=== PATIENT | male | born 1975 | race Caucasian/White ===

== ENCOUNTER 2018-05-26 18:20 | Emergency (ER) | payer SELFPAY ==
--- NOTE | 2018-05-26 20:24 | C.PDOC ---
History Of Present Illness 43 year old male with a Hx of ETOH use presents complaining of ongoing pain to the back of the head after he fell 2 days ago and hit his head. Denies LOC, nausea, vomiting, vision changes, or ETOH use today. - HPI Time Seen by Provider: 05/26/18 18:53 Chief Complaint (Nursing): Trauma History Per: Patient History/Exam Limitations: no limitations Onset/Duration Of Symptoms: Days Injury Occurred (Timing): Days Ago: (2) Location Of Injury: Posterior: Head Recent travel outside of the [facility]: No - Fall Fall:Prior To Injury: Slipped Past Medical History Reviewed: Historical Data, Nursing Documentation, Vital Signs Vital Signs: Last Vital Signs Temp 97.3 F L 05/26/18 18:28 Pulse 82 05/26/18 18:28 Resp 15 05/26/18 18:28 BP 187/120 H 05/26/18 18:28 Pulse Ox 97 05/26/18 18:28 - Medical History PMH: HTN Surgical History: Cholecystectomy Family History: States: Unknown Family Hx - Social History Hx Alcohol Use: No Hx Substance Use: No - Immunization History Hx Tetanus Toxoid Vaccination: No Hx Influenza Vaccination: No Hx Pneumococcal Vaccination: No Review Of Systems Except As Marked, All Systems Reviewed And Found Negative. Eyes: Negative for: Vision Change Gastrointestinal: Negative for: Nausea, Vomiting Neurological: Positive for: Headache. Negative for: Other (LOC) Physical Exam - Physical Exam Appears: Non-toxic Skin: Warm, Dry Head: Normacephalic, No Laceration, Other (Small hematoma to posterior scalp) Eye(s): bilateral: Normal Inspection, PERRL, EOMI Ear(s): Bilateral: Normal Nose: Normal Neck: Normal, Trachea Midline, No Midline Cervical Tenderness, No Paracervical T enderness, No Step Off Deformity, Supple Chest: Symmetrical, No Tenderness Cardiovascular: Rhythm Regular Respiratory: Normal Breath Sounds, No Rales, No Rhonchi, No Wheezing Gastrointestinal/Abdominal: Soft, No Tenderness Back: No Vertebral Tenderness, No Paraspinal Tenderness Extremity: Normal ROM (x4) Neurological/Psych: Oriented x3, Normal Speech, Normal Motor, Normal Sensation Gait: Steady ED Course And Treatment O2 Sat by Pulse Oximetry: 97 (Room air) Pulse Ox Interpretation: Normal - CT Scan/US CT Neck Other Rad Studies (CT/US): Read By Radiologist, Radiology Report Reviewed CT/US Interpretation: EXAM: CT Head without Intravenous Contrast. CLINICAL HISTORY: DIZZINESS. S/P FALL. H/O SUBSTANCE ABUSE. TECHNIQUE: Axial computed tomography images of the head/brain without intravenous contrast. 0.00 mGy-cm. COMPARISON: None provided. FINDINGS: BRAIN. No acute intraparenchymal hemorrhage. No mass lesion. No CT evidence for acute territorial infarct. No midline shift or extra-axial collections. VENTRICLES: No hydrocephalus. O RBITS: The orbits are unremarkable. SINUSES AND MASTOIDS: The paranasal sinuses and mastoid air cells are clear. BONES: No fracture. SOFT TISSUES: A subtle scalp laceration injury/hematoma is seen in the right posterior superior parietal region. IMPRESSION: 1. No acute intracranial abnormality. 2. Small laceration/hematoma in the right posterior superior parietal scalp. Medical Decision Making Medical Decision Making: Diagnosis: Minor head injury Advised patient to decreased ETOH intake and follow up at the clinic in 2 days. Disposition Counseled Patient/Family Regarding: Diagnosis, Need For Followup - Disposition Referrals: [facility] [Outside] Disposition: HOME/ ROUTINE Disposition Time: 20:31 Condition: STABLE Additional Instructions: follow up with your doctor within 2 days call to make an appointment return to ER if symptoms worsens or progress decrease your alcohol use. Instructions: Minor Head Injury (DC) Forms: Gen Discharge Inst Syrian, [employer] (Syrian) Print Language: LIBERIAN - Clinical Impression Clinical Impression: Minor head injury - Scribe Statement The provider has reviewed the documentation as recorded by the Scribmin Mendes All medical record entries made by the Scribe were at my direction and personally dictated by me. I have reviewed the chart and agree that the record accurately reflects my personal performance of the history, physical exam, medical decision making, and the department course for this patient. I have also personally directed, reviewed, and agree with the discharge instructions and disposition.
[2018-05-26 20:47] VITALS: RESP 16; TEMP 98.8; O2SAT 96
[2018-05-26 21:16] VITALS: BP 142/96; PULSE 92
--- NOTE | 2018-05-27 08:12 | CT ---
Date of service: 05/26/2018 PROCEDURE: CT HEAD WITHOUT CONTRAST. HISTORY: dizziness COMPARISON: None available. TECHNIQUE: Axial computed tomography images were obtained through the head/brain without intravenous contrast. Radiation dose: Total exam DLP = 872.31 mGy-cm. This CT exam was performed using one or more of the following dose reduction techniques: Automated exposure control, adjustment of the mA and/or kV according to patient size, and/or use of iterative reconstruction technique. FINDINGS: HEMORRHAGE: No intracranial hemorrhage. BRAIN: No mass effect or edema. No atrophy or chronic microvascular ischemic changes. VENTRICLES: Unremarkable. No hydrocephalus. CALVARIUM: Unremarkable. PARANASAL SINUSES: Unremarkable as visualized. No significant inflammatory changes. MASTOID AIR CELLS: Unremarkable as visualized. No inflammatory changes. OTHER FINDINGS: Mild soft tissue swelling seen at the level of the right posterior superior parietal region. IMPRESSION: No acute intracranial abnormality. If symptoms persists, consider correlation with MRI. A preliminary report was generated at 7:51 p.m. on 05/26/[address] Tonio Hallman from [employer].
== END 2018-05-26 21:16 | disposition home or self-care (01) ==
LOC: C.ER 18:20
DX: S00.03XA Contusion of scalp, initial encounter (principal); W01.0XXA Fall on same level from slipping, tripping and stumbling without subsequent striking against object, initial encounter